=== PATIENT | female | born 1975 ===

== ENCOUNTER 2023-01-17 06:51 | Day surgery (SDC) | payer OTHER ==
[~2023-01-17 06:51] MED LIST: ANORO PO; CELEBREX200MG PO; GRALISE600 MG PO; LEXAP PO; PEPCID20 MG PO
[2023-01-17] MEDS ORDERED: CILOXAN5 ML OTIC (16:46)
== END 2023-01-17 19:05 | disposition home or self-care (01) ==
LOC: CIR.AMB 06:51
PROVIDERS: ATTEND Otolaryngology Otology & Neurotology
DX: H73.811 Atrophic flaccid tympanic membrane, right ear (principal); H65.33 Chronic mucoid otitis media, bilateral; Z88.6 Allergy status to analgesic agent; Z20.822 Contact with and (suspected) exposure to COVID-19; E78.5 Hyperlipidemia, unspecified